=== PATIENT | male | born 1945 | race Caucasian/White ===

== ENCOUNTER → 2020-12-05 | Outpatient (CLI) | payer MEDICARE, OTHER ==
[2020-12-07 16:14] LABS: ENDOMYSIAL ANTIBODY IGA Negative (Negative); IMMUNOGLOBULIN A, QN, SERUM 462 mg/dL (61-437); T-TRANSGLUTAMINASE (TTG) IGA <2 U/mL (0-3)
== END ==
LOC: LAB 16:03
PROVIDERS: Internal Medicine Gastroenterology
DX: K52.9 Noninfective gastroenteritis and colitis, unspecified (principal)
CPT/HCPCS: 82784

== ENCOUNTER 2021-09-24 10:55 | Inpatient (IN) | payer MEDICARE, OTHER ==
[~2021-09-24] VITALS: Ht 177.8 cm; Wt 72.6 kg
[2021-09-24 12:10] LABS: HEMOGLOBIN 14.2 gm/dl (14.0-17.5); RED BLOOD COUNT 4.74 M/UL (4.20-5.50); WHITE BLOOD COUNT 5.8 K/UL (4.5-11.0)
[2021-09-24 12:32] LABS: BUN/CREATININE RATIO 25 (0-10)
[2021-09-24] MEDS ORDERED: GABAPENTIN600 MG PO (15:57)
[2021-09-24] MEDS ORDERED: OXYCODON-ACETA1 EAC1 PO (15:57)
[2021-09-24] MEDS ORDERED: PROAIR HFA8.5 GM INH (15:58)
[2021-09-25 10:21] LABS: HEMOGLOBIN 13.4 gm/dl (14.0-17.5); RED BLOOD COUNT 4.56 M/UL (4.20-5.50)
[2021-09-25 10:33] LABS: WHITE BLOOD COUNT 3.9 K/UL (4.5-11.0)
[2021-09-26 07:10] LABS: HEMOGLOBIN 12.3 gm/dl (14.0-17.5); RED BLOOD COUNT 4.11 M/UL (4.20-5.50)
[2021-09-26 07:15] LABS: WHITE BLOOD COUNT 7.2 K/UL (4.5-11.0)
[2021-09-26 07:37] LABS: BUN/CREATININE RATIO 32 (0-10)
--- NOTE | 2021-09-26 21:41 | NUR ---
APPROX 2119 WHEN ASSESSING PT FEETS WHEN PULLED OFF PT LEFT SOCK 2 GABBAPENTIN PILLS FELL OUT. WHEN I ASKED PT ABOUT HOW THEY GOT THERE HE STATES HE MUST OF DROPPED THEM EARLIER. MEDICATION WAS DISPOSED IN BIOHAZARD BOX WITH LEONEL OCHOA WITNESSING.
[2021-09-27 03:10] LABS: HEMOGLOBIN 11.6 gm/dl (14.0-17.5); RED BLOOD COUNT 3.85 M/UL (4.20-5.50)
[2021-09-27 03:14] LABS: WHITE BLOOD COUNT 4.4 K/UL (4.5-11.0)
[2021-09-27 03:38] LABS: BUN/CREATININE RATIO 26 (0-10)
[2021-09-28 09:03] LABS: HEMOGLOBIN 12.1 gm/dl (14.0-17.5); RED BLOOD COUNT 3.88 M/UL (4.20-5.50)
[2021-09-28 09:08] LABS: WHITE BLOOD COUNT 6.2 K/UL (4.5-11.0)
[2021-09-28 09:22] LABS: BUN/CREATININE RATIO 20 (0-10)
[2021-09-28] MEDS ORDERED: DECADRON6 MG PO (09:59)
[2021-09-28] MEDS ORDERED: OMNICEF 300 MG300 MG PO (09:59)
[2021-09-28] MEDS ORDERED: DECADRON4 MG PO (09:59)
[2021-09-28] MEDS ORDERED: PROTONIX 40 MG40 M1 PO (09:59)
[2021-09-28] MEDS ORDERED: SYMBICORT 80-41 INHA INH (09:59)
--- NOTE | 2021-09-28 15:04 | NUR ---
PATIENT AMBULATED ON ROOM AIR, O2 SAT REMAINED 98%.
--- NOTE | 2021-09-28 18:09 | NUR ---
SPOKE MULTIPLE TIMES EXTENSIVELY WITH IGGY ALVARADO, PATIENT'S DAUGHTER, ABOUT PATIENT'S POC. PATIENT WISHES TO BE DISCHARGED, DAUGHTER SAYS SHE IS UNCERTAIN ABOUT HIS LIVING CONDITIONS SO PLANS TO LET HIM STAY WITH HER. EXPRESSED CONCERN THAT SOMEONE HAD STOLEN HIS PAIN MEDICATION AND NEURONTIN. I RELAYED THIS TO DR FERNANDEZ AND SHE AGREED TO WRITE HIM A 3-DAY PRESCRIPTION FOR THESE MEDICATIONS. RELAYED THIS TO THE PATIENT AND HIS DAUGHTER.
== END 2021-09-28 18:30 | disposition home or self-care (01) | DRG 177 ==
LOC: ER1 10:55 → CDU 14:16 → 3 EAST 09-25 15:06 → MED SURG 4 09-26 15:34
PROVIDERS: Emergency Medicine; ADMIT Internal Medicine
PROC: 8E0ZXY6 Isolation (ICD-10-PCS; principal; 2021-09-24)
PROC: XW033E5 Introduction of Remdesivir Anti-infective into Peripheral Vein, Percutaneous Approach, New Technology Group 5 (ICD-10-PCS; 2021-09-24)
PROC: 3E0333Z Introduction of Anti-inflammatory into Peripheral Vein, Percutaneous Approach (ICD-10-PCS; 2021-09-24)
DX: U07.1 COVID-19 (principal); J12.82 Pneumonia due to coronavirus disease 2019; J96.01 Acute respiratory failure with hypoxia; G93.41 Metabolic encephalopathy; J44.0 Chronic obstructive pulmonary disease with (acute) lower respiratory infection; E87.1 Hypo-osmolality and hyponatremia; M54.9 Dorsalgia, unspecified; G89.29 Other chronic pain; E86.0 Dehydration; I11.9 Hypertensive heart disease without heart failure; R00.1 Bradycardia, unspecified; N28.9 Disorder of kidney and ureter, unspecified; F17.210 Nicotine dependence, cigarettes, uncomplicated; I25.10 Atherosclerotic heart disease of native coronary artery without angina pectoris; I71.4 Abdominal aortic aneurysm, without rupture; Z98.890 Other specified postprocedural states; Z79.899 Other long term (current) drug therapy
CPT/HCPCS: 0240U; 36415; 36600; 70450; 71045; 80053; 82550; 82553; 82728; 82803; 83605; 83874; 83880; 84484; 85025; 85379; 86140; 87040; 93005; 94640; 94664; 94760; 96372; 96374; 96375; 96376; 99285; A6212; J0248; J0456; J0696; J1100; J1650; J7030; Q9967

== ENCOUNTER → 2021-10-04 | Outpatient (CLI) | payer MEDICARE ==
[~2021-10-04] MED LIST: DECADRON4 MG PO; DECADRON6 MG PO; GABAPENTIN600 MG PO; OMNICEF 300 MG300 MG PO; OXYCODON-ACETA1 EAC1 PO; PROAIR HFA8.5 GM INH; PROTONIX 40 MG40 M1 PO; SYMBICORT 80-41 INHA INH
[2021-10-04 21:19] LABS: RED BLOOD COUNT 4.57 M/UL (4.20-5.50); WHITE BLOOD COUNT 10.2 K/UL (4.5-11.0)
[2021-10-04 21:20] LABS: HEMOGLOBIN 14.2 gm/dl (14.0-17.5)
[2021-10-04 21:40] LABS: BUN/CREATININE RATIO 25 (0-10)
== END ==
LOC: LAB 20:45
PROVIDERS: Internal Medicine
DX: U07.1 COVID-19 (principal); J12.82 Pneumonia due to coronavirus disease 2019; J43.9 Emphysema, unspecified
CPT/HCPCS: 36415; 71046; 80053; 85025

== ENCOUNTER 2021-11-23 18:30 | Inpatient (IN) | payer MEDICARE, OTHER ==
[~2021-11-23] VITALS: Ht 182.9 cm; Wt 64.9 kg
[2021-11-23 20:01] LABS: HEMOGLOBIN 12.8 gm/dl (14.0-17.5); RED BLOOD COUNT 4.28 M/UL (4.20-5.50); WHITE BLOOD COUNT 6.8 K/UL (4.5-11.0)
[2021-11-23 20:54] LABS: BUN/CREATININE RATIO 16 (0-10)
[2021-11-23] MEDS ORDERED: BREO ELLIPTA 21 EACH INH (22:46)
[2021-11-23] MEDS ORDERED: CARVEDILOL3.125 MG PO (22:46)
[2021-11-23] MEDS ORDERED: ATORVASTATIN CA80 MG PO (22:47)
[2021-11-23] MEDS ORDERED: ST. JOSEPH ASPI81 MG PO (22:48)
[2021-11-23 23:43] LABS: HEMOGLOBIN 12.1 gm/dl (14.0-17.5); RED BLOOD COUNT 4.11 M/UL (4.20-5.50); WHITE BLOOD COUNT 6.4 K/UL (4.5-11.0)
[2021-11-24 00:13] LABS: BUN/CREATININE RATIO 15 (0-10)
[2021-11-24] MEDS ORDERED: VITAMIN C500 M4 PO (11:09)
[2021-11-24] MEDS ORDERED: SYMBICORT 80-41 INHA INH (11:10)
[2021-11-25 02:36] LABS: HEMOGLOBIN 11.5 gm/dl (14.0-17.5); RED BLOOD COUNT 3.88 M/UL (4.20-5.50); WHITE BLOOD COUNT 7.8 K/UL (4.5-11.0)
[2021-11-25 04:07] LABS: BUN/CREATININE RATIO 14 (0-10)
[2021-11-26] MEDS ORDERED: DILTIAZEM 24HR120 M1 PO (08:19)
[2021-11-26] MEDS ORDERED: FUROSEMIDE40 MG PO (08:19)
[2021-11-26] MEDS ORDERED: LEVOFLOXACIN500 MG PO (08:20)
[2021-11-26] MEDS ORDERED: MEDROL4 MG PO (08:20)
--- NOTE | 2021-11-26 09:13 | NUR ---
ROOM AIR O2 SAT 85%
[2021-11-28 16:13] LABS: ORGANISM ID Not indicated. (.); SPECIMEN SOURCE Urine (.); STREPTOCOCCUS PNEUMONIAE AG Negative (Negative)
== END 2021-11-26 16:18 | disposition home or self-care (01) | DRG 193 ==
LOC: ER1 18:30 → PROG CARE 20:37 → CDU 20:37 → PROG CARE 22:26
PROVIDERS: Internal Medicine; Physician Assistant; ADMIT Internal Medicine
DX: J18.9 Pneumonia, unspecified organism (principal); E43 Unspecified severe protein-calorie malnutrition; J96.21 Acute and chronic respiratory failure with hypoxia; I50.33 Acute on chronic diastolic (congestive) heart failure; F11.20 Opioid dependence, uncomplicated; Z68.1 Body mass index [BMI] 19.9 or less, adult; J43.9 Emphysema, unspecified; Z20.822 Contact with and (suspected) exposure to COVID-19; I11.0 Hypertensive heart disease with heart failure; F17.200 Nicotine dependence, unspecified, uncomplicated; I35.0 Nonrheumatic aortic (valve) stenosis; G89.4 Chronic pain syndrome; Z82.3 Family history of stroke; Z82.49 Family history of ischemic heart disease and other diseases of the circulatory system; Z79.82 Long term (current) use of aspirin; Z79.899 Other long term (current) drug therapy; Z95.1 Presence of aortocoronary bypass graft; Z71.6 Tobacco abuse counseling; Z99.81 Dependence on supplemental oxygen
CPT/HCPCS: ECHO; 0240U; 36415; 36600; 71045; 71275; 80048; 80053; 80061; 80202; 80307; 82550; 82553; 82803; 83735; 83880; 84100; 84439; 84443; 84484; 85025; 85379; 87040; 87278; 87899; 93005; 93306; 93970; 94640; 94664; 94760; 96365; 96367; 99285; J1650; J1940; J2543; J2920; J3370; J7030; J7070; Q9967